=== PATIENT | male | born 1990 | race Caucasian/White ===

== ENCOUNTER 2018-04-03 10:38 | Emergency (ER) | payer OTHER ==
[~2018-04-03] VITALS: Ht 165.1 cm; Wt 71.0 kg
[2018-04-03 11:01] VITALS: BP 131/61
[2018-04-03] MEDS ORDERED: IBUPROFEN 600MG TABLET PO ONE (12:00)
== END 2018-04-03 19:00 | disposition home or self-care (01) ==
LOC: ER 12:18
DX: G44.209 Tension-type headache, unspecified, not intractable (principal)
CPT/HCPCS: 99282